=== PATIENT | male | born 1985 | race Asian ===

== ENCOUNTER 2019-09-13 14:10 | Emergency (ER) | payer OTHER, SELFPAY ==
[2019-09-13 14:23] VITALS: BP 111/59; PULSE 89; RESP 18; TEMP 37; O2SAT 98
--- NOTE | 2019-09-13 14:29 | XRR_ITS ---
PROCEDURE INFORMATION: Exam: XR Left Foot Complete Exam date and time: 09/13/2019 2:59 PM Age: 34 years old Clinical indication: Pain and injury or trauma; Injury history: Hit heel on hose at work; Work related; Initial encounter; Blunt trauma; Heel and foot; Left; Foot and heel; Injury date: 09/12/19; Additional info: Trauma/pain TECHNIQUE: Imaging protocol: XR Left foot. Views: 3 or more views. COMPARISON: No relevant prior studies available. FINDINGS: Bones/joints: Normal. Soft tissues: Normal. XR/XR foot LT min 3V* [id number] IMPRESSION: No acute findings. No fracture evident.
--- NOTE | 2019-09-13 15:11 | ED_ITS ---
HPI - Extremity Problem General: Chief complaint: Extremity Injury, Lower Stated complaint: RIGHT FOOT INJURY Time Seen by Provider: 09/13/19 14:31 Source: patient and family Mode of arrival: ambulatory Limitations: no limitations History of Present Illness: HPI Narrative: Patient is a 34-year-old male who presents to ED today along with family for complaints of left foot pain. Family family interprets for patient as Chinese is not his primary language. They report patient struck the side of his left foot on a hose yesterday and has had trouble with ambulation since. MD Complaint: extremity pain Onset (ago): day(s) Pain Consistency: constant Location: left Relieving factors: immobilization Exacerbating factors: range of motion, weight bearing and walking Associated symptoms: Reports no associated symptoms; Deny fever(s) Review of Systems Const: Denies: fever or chills Musc: Reports: extremity pain; Denies: neck pain, back pain, extremity swelling, joint pain or joint swelling PFSH ED PFSH: Statuses (acute, chronic, etc) shown below reflect problem list status as previously entered and may not be historically accurate Social History Smoking and tobacco status: current every day smoker Physical Exam Const: COMMON NORMALS: no apparent distress, average body habitus, oriented x3, no limitations, healthy appearing, alert and well nourished Extremity: OTHER: TTP of lateral L foot; full ROM; mild ecchymosis noted Neuro: COMMON NORMALS: oriented x3 SENSORIUM/ORIENTATION: Yes alert Course Vital Signs: Vital signs: Vital Signs Temperature 98.4 F 09/13/19 16:10 Pulse Rate 89 09/13/19 16:10 Respiratory Rate 16 09/13/19 16:10 Blood Pressure 110/62 09/13/19 16:10 Pulse Oximetry 98 09/13/19 16:10 MDM - Extremity (Nontraumatic) Imaging Data^: L foot XR: My impression: NAD Discharge Plan Discharge Patient Disposition: Home, Self-Care Clinical Impression: Contusion of left foot Qualifiers: Encounter type: initial encounter Qualified Code(s): S90.32XA - Contusion of left foot, initial encounter Condition: Stable Prescriptions: No Action No Known Home Medications RF: 0 Discharge Orders: Discharge Order (Routine); Ordered 09/13/19 Ordered By: Nadiya Peterson Discharge Diet: Usual diet Discharge Activity: Increase activity as tolerated and Use walker/crutches as instructed Discharge Date/Time: 09/13/19 15:30 Coding Level of Care Code ED Engineering Surveyor for Jamesg Fwd Exam Problem Focused
[2019-09-13 16:10] VITALS: BP 110/62; PULSE 89; RESP 16; TEMP 36.9; O2SAT 98
== END 2019-09-13 15:30 | disposition home or self-care (01) ==
PROVIDERS: Emergency Provider Physician Assistant
DX: S90.32XA Contusion of left foot, initial encounter (principal); F17.200 Nicotine dependence, unspecified, uncomplicated; W22.8XXA Striking against or struck by other objects, initial encounter
CPT/HCPCS: 73630; 99281; 99282

== ENCOUNTER 2022-06-12 06:08 | Outpatient (CLI) | payer OTHER, SELFPAY ==
--- NOTE | 2022-06-12 06:15 | US_ITS ---
WS: [id number] RIGHT UPPER QUADRANT ULTRASOUND HISTORY: Diarrhea COMPARISON: None available. Liver: 15.2 cm in length. Normal size liver. No bile duct dilatation or mass. Portal Vein: Normal hepatopetal flow with monophasic waveform. Gallbladder: Gallbladder is normally distended. No stones identified or wall thickening. No perichole cystic fluid. There is a nonmobile mild 4 mm polyp along the nondependent wall of the gallbladder. CBD: 0.4 cm Pancreas: Normal size and echogenicity. Right kidney: 10.1 cm in length. Normal size and echogenicity. No hydronephrosis or mass. Aorta and IVC: Unremarkable abdominal aorta and IVC. No ascites. US/US gall bladder [id number] IMPRESSION: 1. No cholelithiasis. 2. 4 mm hyperplastic gallbladder polyp. 3. No bile duct dilatation.
== END 2022-06-12 06:09 | disposition home or self-care (01) ==
LOC: RAD 06:18
PROVIDERS: PCP Physician Assistant; Visit Provider Surgery
DX: R19.7 Diarrhea, unspecified (principal); K82.4 Cholesterolosis of gallbladder
CPT/HCPCS: 76705

== ENCOUNTER 2022-11-18 06:59 | Day surgery (SDC) | payer OTHER, SELFPAY ==
[2022-11-16 09:08] VITALS: BMI 25.9
[2022-11-18 07:27] VITALS: BP 99/70; PULSE 52; RESP 18; TEMP 36.3; O2SAT 100
[2022-11-18] MEDS: sodium chloride 0.9% 1,000 ML 30 ML IV (07:32)
--- NOTE | 2022-11-18 07:51 | ANES.PREANE2 ---
Pre-Anesthetic Assessment Height/Weight: Height 1.65 m Weight 70.76 kg Temp Pulse Resp BP Pulse Ox O2 Del Method 97.4 F L 52 L 18 99/70 100 Room Air 11/18/22 07:27 11/18/22 07:27 11/18/22 07:27 11/18/22 07:27 11/18/22 07:27 11/18/22 07:27 Preop Diagnosis: Chronic diarrhea Operation Date: 11/18/22 08:30 Proposed Procedures p [id number] egd, [id number] colon K52.9(Not Applicable) - Oscar Little DO s Colonoscopy(Not Applicable) - Oscar Little DO Was Beta Ephraim taken within 24 hours: N/A Was Clonidine taken within 24 hours: N/A Last intake: Intake Last Liquid Date 11/17/22 Last Liquid Time 22:00 Last Solid Date 11/16/22 Last Solid Time 23:59 Social Tobacco and No alcohol 1/2 pack(s) per day none today Exam alert, oriented x 3, clear to auscultation bilaterally and regular rate & rhythm language barrer, but patient states he can understand and declines translation services Airway Submandibular: within normal limits Cervical ROM: within normal limits Mallampati: Class III Comments: Comments: small mouth opening History/ROS No significant history except as noted and No significant complaints Pulmonary smoker CV/HEM None reported None reported Hepatic None reported GI chronic diarrhea Metabolic None reported Musc/skel None reported Neuropsych None reported Anesthetic Plan ASA status: 2 Anesthesia: Anesthesia Evaluation and MAC Risk of > 500 ml blood loss (7ml/kg in children): Yes, adequate IV access and fluids planned Medications/Allergies Home Medications Medication Instructions Recorded Confirmed Last Taken Type No Known Home Medications 06/21/22 11/16/22 Unknown History Allergies Allergy/AdvReac Type Severity Reaction Status Date / Time peanuts Allergy ADR-Itching Uncoded 11/16/22 09:06 Current Medications Generic Name Dose Route Start Last Admin Trade Name Freq PRN Reason Stop Dose Admin Sodium Chloride 1,000 mls @ 30 mls/hr 11/18/22 07:15 11/18/22 07:32 Sodium Chloride 0.9% IV 30 mls/hr .Q24H GABRIEL Administration PFSH Anesthesia Social History Smoking and tobacco status: current every day smoker Data Anesthesia Cardiac Studies: No Data to Display
--- NOTE | 2022-11-18 09:04 | PM.HP ---
Providers/Chief Complaint Primary Care Provider: Kimber Jackson Chief Complaint: K52.9 History of Present Illness Sarah Castle is a 37 year old male with chronic diarrhea here for EGD and colonoscopy Medications/Allergies Home Medications Medication Instructions Recorded Confirmed Last Taken Type No Known Home Medications 06/21/22 11/16/22 Unknown History Allergies Allergy/AdvReac Type Severity Reaction Status Date / Time peanuts Allergy ADR-Itching Uncoded 11/16/22 09:06 PFSH Acute PFSH: Social History Smoking and tobacco status: current every day smoker Vitals/I&O/Wt Last Vital Signs Temp 97.4 F L 11/18/22 07:27 Pulse 52 L 11/18/22 07:27 Resp 18 11/18/22 07:27 BP 99/70 11/18/22 07:27 Pulse Ox 100 11/18/22 07:27 O2 Del Method Room Air 11/18/22 07:27 Weight last 48 hrs Weight 156 lb A&P Assessment and plan (1) Chronic diarrhea: Plan EGD Colonoscopy The risks and benefits of the procedure, including bleeding, infection, intestinal perforation requiring surgery, missed lesion were explained to the patient. The patient is understanding of the risks and wishes to proceed. Attestations Medical Necessity Statement*: Home Coding Level of Care Code Acute Code for Chg Fwd Diagnoses Chronic diarrhea K52.9
[2022-11-18 09:37] VITALS: BP 83/44; PULSE 72; RESP 14; TEMP 36.1; O2SAT 93
[2022-11-18 09:47] VITALS: BP 106/63; PULSE 64; RESP 16; O2SAT 100
[2022-11-18 09:57] VITALS: BP 108/73; PULSE 60; RESP 14; O2SAT 100
--- NOTE | 2022-11-18 12:00 | ANE.PACU2 ---
Inpatient post-anesthesia follow up: Airway intact: Yes Vital signs: Temperature 97 F Pulse Rate 60 Respiratory Rate 14 Blood Pressure 108/73 Pulse Oximetry 100 Oxygen Delivery Me thod Room Air Oxygen Flow Rate 2 Fraction of Inspir ed Oxygen Hydration adequate: Yes Nausea and vomiting: No Pain level: 1 Mental status: Baseline
== END 2022-11-18 10:10 | disposition home or self-care (01) ==
PROVIDERS: PCP Physician Assistant; Visit Provider Surgery
PROC: 0DJ08ZZ Inspection of Upper Intestinal Tract, Via Natural or Artificial Opening Endoscopic (ICD-10-PCS; CPT 43235; principal; 2022-11-18 08:30)
PROC: 0DJD8ZZ Inspection of Lower Intestinal Tract, Via Natural or Artificial Opening Endoscopic (ICD-10-PCS; CPT 45378; 2022-11-18 08:30)
DX: K52.9 Noninfective gastroenteritis and colitis, unspecified (principal); F17.200 Nicotine dependence, unspecified, uncomplicated
CPT/HCPCS: 43239; 45380; 82274; 83630; 87493; 87506; 88305; J2704; J7030

== ENCOUNTER 2023-01-11 09:47 | Outpatient (CLI) | payer OTHER, SELFPAY ==
--- NOTE | 2023-01-11 10:00 | NM_ITS ---
WS: [id number] NUCLEAR MEDICINE HIDA SCAN WITH GALLBLADDER EJECTION FRACTION HISTORY: abd pain COMPARISON: Gallbladder ultrasound 06/12/2022 TECHNIQUE: The patient was intravenously injected with 7.6 mCi of TC99m Mebrofenin. Immediate imaging over the right upper quadrant was followed by 5 minute image and additional images for a total of 60 minutes. Normal uptake of radiotracer throughout the liver. Activity identified in the gallbladder at 10 minutes and well distended by 60 minutes. Activity in the proximal small bowel was seen by 30 minutes. Good washout of the radiotracer from the liver by 60 minutes. The patient then drank 8 ounces of Ensure Plus. Ejection fraction at 75 minutes was 88%. Normal GB ej ection fraction is 35-75%. Post fatty meal symptoms: None. NM/NM hepatobiliary w phar* [id number] IMPRESSION: 1. Normal HIDA scan. 2. Normal gallbladder ejection fraction.
== END 2023-01-11 09:48 | disposition home or self-care (01) ==
LOC: RAD 09:50
PROVIDERS: PCP Physician Assistant; Visit Provider Surgery
DX: R10.9 Unspecified abdominal pain (principal)
CPT/HCPCS: 78227; A9537

== ENCOUNTER 2023-02-25 11:14 | Day surgery (SDC) | payer OTHER, SELFPAY ==
[2023-02-24 09:16] VITALS: BMI 26.2
[2023-02-25] VITALS (11 sets, daily range): BP systolic 113–157; BP diastolic 67–107; PULSE 54–87; RESP 14–18; TEMP 36.2–36.7; O2SAT 95–100
--- NOTE | 2023-02-25 11:50 | P.ANESASSM_ITS ---
Pre-Anesthetic Assessment Height/Weight: Height 1.65 m Weight 71.668 kg O2 Del Method Room Air 02/25/23 11:26 Preop Diagnosis: Deviated nasal septum/turbinate hypertrophy/nasal obstruction Operation Date: 02/25/23 13:05 Proposed Procedures p [id number] - septoplasty and turbinate reduction J34.89, J34.3,J34.2(Not Applicable) - Ramiro White MD s Turbinate Reduction(Not Applicable) - Ramiro White MD Familial anesthetic complications: None Was Beta Ephraim taken within 24 hours: N/A Was Clonidine taken within 24 hours: N/A Last intake: Intake Last Liquid Date 02/24/23 Last Liquid Time 22:00 Last Solid Date 02/24/23 Last Solid Time 22:00 Social No alcohol and No tobacco Exam alert, oriented x 3, clear to auscultation bilaterally and regular rate & rhythm Airway Mallampati: Class II Dentition: full Anesthetic Plan ASA status: 1 Anesthesia: General Risk of > 500 ml blood loss (7ml/kg in children): No Medications/Allergies Allergies Allergy/AdvReac Type Severity Reaction Status Date / Time peanut Allergy ALGY-Rash Verified 02/24/23 09:14 [facility] Anesthesia Social History Smoking and tobacco status: current every day smoker Data Anesthesia Cardiac Studies: No Data to Display
[2023-02-25] MEDS: sodium chloride 0.9% 1,000 ML 30 ML IV (12:06)
--- NOTE | 2023-02-25 12:42 | W.PM.OPSUD ---
Surgery/Procedure H&P Update DATE OF PROCEDURE: February 25, 2023 DATE H&P PERFORMED: 02/15/23 H&P UPDATE INFORMATION: I have reviewed H&P completed within last 30 days, I have examined patient prior to procedure and No changes to prior documentation CHANGES TO PREVIOUS DOCUMENTATION: No changes PREOP DIAGNOSIS: Deviated nasal septum/turbinate hypertrophy/nasal obstruction PRIMARY INDICATION FOR PROCEDURE: Nasal obstruction due to deviated nasal septum and turbinate hypertrophy PLANNED PROCEDURE: Operation Date: 02/25/23 13:05 Proposed Procedures p [id number] - septoplasty and turbinate reduction J34.89, J34.3,J34.2(Not Applicable) - Ramiro White MD s Turbinate Reduction(Not Applicable) - Ramiro White MD
[2023-02-25] MEDS: ceFAZolin 2,000 MG in sodium chloride 0.9% (plus) 50 ML 100 MG IV (12:53)
[2023-02-25] MEDS: oxymetazoline 0.05% Nasal Spray 15 mL 1 SPRAY NOSTRIL-B (13:12)
[2023-02-25] MEDS: lidocaine-epi 2% 1.7mL Cartridge (OR Only) 10.8 ML XX (13:15)
[2023-02-25] MEDS: neomycin-poly-bacitracin oint 28 gm 1 APPLIC TOPICAL (13:50)
--- NOTE | 2023-02-25 13:55 | P.OP_ITS ---
Operative Report Date of procedure: February 25, 2023 Pre-op diagnosis: Preop Diagnosis Deviated nasal septum/turbinate hypertrophy/ nasal obstruction Post-op diagnosis: Same Post-op findings: Deviated nasal septum off maxillary crest to the left side inferiorly and displaced superiorly to the right side. 4+ inferior turbinate right side and 3+ inferior turbinate left side. Procedure done: Septoplasty and bilateral inferior turbinate submucous resections. Implants: 2 septal splints and 2 Telfa packs Specimens removed/disposition: Portions of septum and portions of turbinates not forwarded to pathology. Pathology: Nothing for pathology. Surgeon: Ramiro White MD Anesthesia: General and Local Estimated blood loss: 15 mL Complications: No complications encountered Findings: Patient has had nasal congestion and obstruction refractory to medical therapy and time. He was found to have a deviated septum and significant turbinate hypertrophy. Brief History: 37-year-old male patient who has had long-term nasal congestion and obstruction. It has been getting worse over time and spite of medical therapy and steroid nasal sprays and oral steroids. He is being brought to the operating room therefore to undergo septoplasty and turbinate reduction as indicated. The pro cedure its risks and complications have been explained in detail to the patient in the office setting. These risks included bleeding and infection and numbness and scarring and swelling and bruising and septal hematoma or abscess or perforation as well as nasal dryness or change in sense of smell. Other risks include need for additional treatment and anesthetic risks such as heart attack or stroke or not surviving the surgery. With these things understood informed consent was granted and witnessed. Procedure: Description of procedure: The patient was placed on the operating table in the supine position. Adequate general endotracheal tube anesthesia was obtained. The patient was repositioned into a semirecumbent position. His nose was packed with 6 cottonoids soaked in 12-hour Afrin. Nasal hairs were trimmed with scissors. Afrin packs were removed and the septum and inferior turbinates were infiltrated with local utilizing a total of 10.8 mL of 2% Xylocaine with 1- 100,000 epinephrine. The Afrin packs were reapplied to the nose and the patient was prepped and draped in usual fashion. A timeout was accomplished identifying the patient date of plan procedure allergies fire risk and medications given. With all in agreement the procedure continued. The Afrin packs were removed from the nose. Inspection revealed the septum bent superiorly to the right side and inferiorly off the crest to the left side. Inferior turbinate hypertrophy 4+ right side 3+ left side. Obstruction when passing Pinal elevator in the nose. The Pinal elevator was used to outfracture the inferior turbinates. Intramural cauterization was accomplished anteriorly and over the entire length of each inferior turbinate. Then a left hemitran sfixion incision was created with a 15 blade carrying it down to the level of the septal cartilage. A mucoperichondrial and periosteal flap was then raised on the left side in all directions. Once this was accomplished the cartilage was noted to be bent superiorly to the right side inferiorly to the left side with spur off crest to the left side. The cartilage was carefully dissected free from the maxillary crest and an inferior strip of quadrangular cartilage was resected using a half round knife and Nicolás forceps. This was approximately 2 to 3 mm in height. This was done anterior to posterior and the cartilage. Then the quadrangular cartilage was disarticulated from the perpendicular plate of the ethmoid and vomer and the posterior tunnel created on the right side. Septal bone was then resected that was displaced and showing spur to the left side. Once that was accomplished the superior bony septum was fractured back into the midline. The cartilage was still buckling from anterior to posterior therefore I trimmed the junction of the posterior quadrangular cartilage and the perpendicular plate of the ethmoid and vomer and that allowed the quadrangular cartilage to rest without buckling or without tension. With this accomplished the septum now rested in a good straight midline position without further deflection. A drain site was created with a 15 blade eliezer langley sing horizontally in the mid portion of the septum approximately 1-1/2 cm in length. This allowed suctioning and drainage of the septal pocket. Now the inferior turbinates were once again assessed. In spite of the outfracturing and the intramural cauterization previously, these were still hypertrophic and obstructing. Therefore the cut mode of the Bovie was used to incise medially and laterally and the distal portion of the turbinate and the more proximal bone was resected from the right inferior turbinate first over its entire length. Similar procedure done on the left side. Approximately one half of the right inferior turbinate was resected and approximately one third of the left. That accomplished the area was checked on both turbinate remnants to see if there was any active bleeding. None was seen. At this point the septal pocket was once again suctioned clean. The left hemitransfixion incision was closed loosely with interrupted 4-0 chromic suture. 2 septal splints were prepped and coated with Neosporin and 1 was applied each side of the septum extending up medial to the middle turbinates. These were sutured in a through and through fashion with 3-0 Prolene. Airway was checked once again by passing a Pinal elevator through both nasal chambers to the nasopharynx. The Pinal elevator was able to be twisted with no obstruction or resistance. The nasopharynx was suctioned clean. The nose was packed with 2 Telfa packs coated with Neosporin 1 placed on each side of the septum. Then the mouth and oropharynx were irrigated and suctioned clean. No bleeding was seen posteriorly. The face was cleansed. A drip pad was applied under the nose. Drapes were removed and the patient was returned to anesthesia for wake-up and extubation. He tolerated the procedure well had an estimated blood loss of 15 mL and arrived in recovery in stable condition.
[2023-02-25] MEDS: fentaNYL 50 mcg/mL INJ 2mL IVP (14:16)
[2023-02-25] MEDS: hyDRALAzine 20 mg/mL INJ 1 mL 10 MG IVP (14:30)
[2023-02-25] MEDS: TRAMadol 50 mg Tablet PO (14:47)
--- NOTE | 2023-02-25 15:35 | ANE.PACU2 ---
Inpatient post-anesthesia follow up: Airway intact: Yes Vital signs: Temperature 98.0 F Pulse Rate 54 Respiratory Rate 16 Blood Pressure 146/97 Pulse Oximetry 100 Oxygen Delivery Me thod Room Air Oxygen Flow Rate 6 Fraction of Inspir ed Oxygen Hydration adequate: Yes Nausea and vomiting: No Pain level: 1 Mental status: Baseline
== END 2023-02-25 15:46 | disposition home or self-care (01) ==
PROVIDERS: PCP Physician Assistant; Visit Provider Otolaryngology
PROC: (CPT 30520; principal; 2023-02-25 12:55)
PROC: (CPT 30130; 2023-02-25 12:55)
DX: J34.3 Hypertrophy of nasal turbinates (principal); J34.2 Deviated nasal septum; F17.200 Nicotine dependence, unspecified, uncomplicated
CPT/HCPCS: 30130; 30520; J0360; J0690; J1100; J1170; J2250; J2405; J2704; J2710; J3010; J3490; J7030